=== PATIENT | female | born 1975 | race Caucasian/White ===

== ENCOUNTER 2020-06-12 08:40 | Day surgery (SDC) | payer OTHER ==
[2020-06-12] MEDS ORDERED: PROPOFOL 20 ML ONE ×2 (09:08)
[2020-06-12] MEDS ORDERED: LIDOCAINE HCL/PF 2% SDV 5ML VIAL ONE (09:08)
--- OUTSIDE RECORDS SUMMARY | 2020-06-12 13:30 | XMS ---
:1975 Author Organization [facility] Care Team Providers Name Role Phone EVAN JEROME Unavailable Unavailable MARCEL AJ Unavailable Unavailable Re-disclosure Warning The records that you are about to access may contain information from federally- assisted alcohol or drug abuse programs. If such information is present, then the following federally mandated warning applies: This information has been disclosed to you from records protected by federal confidentiality rules (42 CFR part 2). The federal rules prohibit you from making any further disclosure of this information unless further disclosure is expressly permitted by the written consent of the person to whom it pertains or as otherwise permitted by 42 CFR part 2. A general authorization for the release of medical or other information is NOT sufficient for this purpose. The Federal rules restrict any use of the information to criminally investigate or prosecute any alcohol or drug abuse patient.The records that you are about to access may contain highly sensitive health information, the redisclosure of which is protected by Article 27-F of the [facility] Public Health law. If you continue you may haveaccess to information: Regarding HIV / AIDS; Provided by facilities licensed or operated by the [facility] Office of Mental Health; or Provided by the [facility] Office for People With Developmental Disabilities. If such information is present, then the following [facility] mandated warning applies: This information has been disclosed to you from confidential records which are protected by state law. State law prohibits you from making any further disclosure of this information without the specific written consent of the person to whom it pertains, or as otherwise permitted by law. Any unauthorized further disclosure in violation of state law may result in a fine or longterm sentence or both. A general authorization for the release of medical or other information is NOT sufficient authorization for further disclosure. Allergies and Adverse Reactions Type Description Substance Reaction Status Data Source(s ) Drug allergy Penicillins Penicillins [facility] Encounters Encounter Providers Location Date Indications Data Source(s ) Outpatient Attender: 05/10/2019 I83.899 [facility] daksha AJ, 06:00:00 AM Health Care IGORAttender: EDT [employer] [facility] JEROMEmitter: Sadiq JEROMErer: MARCEL AJ I83.899 Insurance Providers Payer name Policy type Policy ID Covered Covered republican's Policy P rowdy / Coverage republican ID relationship to Bains Inf ormation type bains [employer] [id number] SP [id number] HEALTHCARE PPO Problems, Conditions, and Diagnoses Code Display Name Description Problem Type Effective Data Sour ce(s) Dates I83.893 Varicose veins of VARICOSE VEINS OF Diagnosis 05/10/2019 [place] bilateral lower BI LOW EXTREM W 06:00:00 [facility] extremities with OTH COMPLICATIONS EDT C are other Corporation complications I83.899 Varicose veins of VARICOS VN UNSP Diagnosis 05/10/2019 [place] unspecified lower LOWER EXTREMITY 06:00:00 [facility] extremity with WITH OTHER EDT Care other COMPLICATIONS [employer] complications
--- NOTE | 2020-06-16 17:11 | PATH ---
Surgical Pathology Report Patient Name: ROCK CALDERÓN [facility]. Rec. #: [id number] /Age/Gender: 1975 (Age: 44) / F Account: [id number] Location: [facility] Taken: 06/12/2020 Received: 06/12/2020 Reported: 06/16/2020 Physicians: Belkys Alcantar M.D. Specimen(s) Received A: RIGHT COLON B: TRANSVERSE COLON C: DESCENDING COLON D: RECTUM Clinical History Diarrhea Postoperative diagnosis: Hemorrhoids Final Diagnosis A. RIGHT COLON, BIOPSY: COLONIC MUCOSA WITH NO SIGNIFICANT PATHOLOGIC CHANGE. NO EVIDENCE OF ACTIVE COLITIS OR MICROSCOPIC COLITIS. B. TRANSVERSE COLON, BIOPSY: COLONIC MUCOSA WITH NO SIGNIFICANT PATHOLOGIC CHANGE. NO EVIDENCE OF ACTIVE COLITIS OR MICROSCOPIC COLITIS. C. DESCENDING COLON, BIOPSY: COLONIC MUCOSA WITH NO SIGNIFICANT PATHOLOGIC CHANGE. NO EVIDENCE OF ACTIVE COLITIS OR MICROSCOPIC COLITIS. D. RECTUM, BIOPSY: COLONIC MUCOSA WITH RECENT HEMORRHAGE AND REACTIVE LYMPHOID AGGREGATE IN THE LAMINA PROPRIA. NO EVIDENCE OF ACTIVE COLITIS. Electronically Signed Cyrus Jacobsen M.D. Gross Description A. Received in formalin, labeled "right colon" is a [place], irregular portion of soft tissue measuring 0.8 cm. in greatest dimension. The specimen is submitted in toto in one cassette. B. Received in formalin, labeled "transverse colon" is a [place], irregular portion of soft tissue measuring 0.3 cm. in greatest dimension. The specimen is submitted in toto in one cassette. C. Received in formalin, labeled "descending colon" is a [place], irregular portion of soft tissue measuring 0.5 cm. in greatest dimension. The specimen is submitted in toto in one cassette. D. Received in formalin, labeled "rectum" is a [place], irregular portion of soft tissue measuring 0.3 cm. in greatest dimension. The specimen is submitted in toto in one cassette. 06/15/2020 saudi06/15/2020
== END 2020-06-12 12:25 | disposition home or self-care (01) ==
LOC: FASU-ENDO 08:40
PROVIDERS: ATTEND Internal Medicine Gastroenterology
PROC: 0DBP8ZX Excision of Rectum, Via Natural or Artificial Opening Endoscopic, Diagnostic (ICD-10-PCS; 2020-06-12)
PROC: 0DBM8ZX Excision of Descending Colon, Via Natural or Artificial Opening Endoscopic, Diagnostic (ICD-10-PCS; 2020-06-12)
PROC: 0DBK8ZX Excision of Ascending Colon, Via Natural or Artificial Opening Endoscopic, Diagnostic (ICD-10-PCS; principal; 2020-06-12 10:54)
DX: K62.89 Other specified diseases of anus and rectum (principal); K64.0 First degree hemorrhoids; R19.7 Diarrhea, unspecified
CPT/HCPCS: 84703; 88305-TC